=== PATIENT | male | born 1995 | race Asian ===

== ENCOUNTER 2017-12-18 11:15 | Emergency (ER) | payer OTHER, MEDICAID | END 2017-12-18 15:23 | disposition home or self-care (01) | LOC: FTE 11:15 | DX: R07.9 Chest pain, unspecified (principal) | CPT/HCPCS: 71045; 93005; 99284-25 ==

== ENCOUNTER 2018-05-19 14:07 | Emergency (ER) | payer OTHER | END 2018-05-19 15:05 | disposition home or self-care (01) | LOC: E/R 14:07 | DX: S99.912A Unspecified injury of left ankle, initial encounter (principal); X58.XXXA Exposure to other specified factors, initial encounter; Y92.9 Unspecified place or not applicable | CPT/HCPCS: 73610; 99283-25 ==